=== PATIENT | female | born 1995 | race Caucasian/White ===

== ENCOUNTER 2016-11-14 16:53 | Emergency (ER) | payer OTHER ==
[2016-11-14 17:46] LABS: HEMOGLOBIN 13.2 gm/dl (12.3-15.3); RED BLOOD COUNT 4.35 M/UL (4.00-5.10); WHITE BLOOD COUNT 6.1 K/UL (4.5-11.0)
[2016-11-14 17:55] LABS: BUN/CREATININE RATIO 17 (0-10)
== END 2016-11-14 21:45 | disposition home or self-care (01) ==
LOC: ER1 16:53
PROVIDERS: Emergency Medicine
DX: N13.2 Hydronephrosis with renal and ureteral calculous obstruction (principal)
CPT/HCPCS: 36415; 80053; 81001; 83690; 84703; 85025; 96361; 96374; 96375; 99284; J1885; J2270; J2405; J7030